=== PATIENT | male | born 1975 | race Caucasian/White ===

== ENCOUNTER 2025-04-03 22:47 | Inpatient (IN) | payer OTHER, MEDICAID ==
[~2025-04-03] VITALS: Ht 170.2 cm; Wt 98.9 kg
[~2025-04-03 22:47] MED LIST: AMLO5TAB88 PO; ASPI-1160 PO; CLOP-31 PO; LIP40 PO; LOSA25TA26 PO
[2025-04-03 23:00] VITALS: BP 151/87; PULSE 78; RESP 18; TEMP 37.1; O2SAT 97
[2025-04-04] MEDS ORDERED: DIPHENHYDRAMINE 50MG/ML VIAL IV PRN
[2025-04-04] MEDS ORDERED: MAGNESIUM/ALUMINUM HYDROXIDE/SIMETHICONE 30ML UDC PO PRN
[2025-04-04] MEDS ORDERED: ONDANSETRON HCL 4MG/2ML INJ IV PRN
[2025-04-04] MEDS ORDERED: CLONIDINE 0.1MG TABLET PO PRN
[2025-04-04 01:00] VITALS: BP 151/87; PULSE 78; RESP 18; TEMP 37.1408
[2025-04-04 04:00] VITALS: BP 144/86; PULSE 88; RESP 18; TEMP 36.7; O2SAT 98
[2025-04-04 08:00] VITALS: BP 149/93; PULSE 81; RESP 19; TEMP 36.9; O2SAT 97
[2025-04-04 08:05] LABS: BASOPHILS % 0.3 % (0.0-2.0); EOSINOPHILS % 1.6 % (0.0-5.0); HEMATOCRIT. 47.0 % (42.0-52.0); HEMOGLOBIN. 16.1 g/dL (14.0-18.0); LYMPHOCYTES % 19.8 % (20.0-50.0); MEAN PLATELET VOLUME 7.8 fl (7.4-10.4); MONOCYTES % 8.8 % (2.0-8.0); NEUTROPHILS % 69.5 % (40.0-76.0); PLATELET 356 x1000/uL (130-400); RED BLOOD CELL COUNT 5.44 mill/uL (4.7-6.1); RED CELL DISTRIBUTION WIDTH 13.6 % (11.6-14.6)
[2025-04-04 08:15] LABS: CREATININE 0.9 mg/dL (0.6-1.3)
[2025-04-04 08:17] LABS: ASPARTATE AMINOTRANSFERASE 47 IU/L (<34); UREA NITROGEN BLOOD 15 mg/dL (9-23)
[2025-04-04 08:19] LABS: BILIRUBIN TOTAL 1.0 mg/dL (0.1-1.0); PROTEIN TOTAL 8.1 g/dL (6.0-8.3)
[2025-04-04] MEDS: ASPIRIN 81MG TABLET PO SCH (08:42)
[2025-04-04] MEDS: CLOPIDOGREL 75MG TABLET PO SCH (08:43)
[2025-04-04] MEDS: LOSARTAN 25 MG TABLET PO SCH (08:44)
[2025-04-04] MEDS: AMLODIPINE 5MG TABLET PO SCH (08:44)
[2025-04-04 20:00] VITALS: BP 123/81; PULSE 88; RESP 20; TEMP 36.9; O2SAT 96
[2025-04-04] MEDS: ATORVASTATIN CALCIUM 40MG TABLET PO SCH (20:20)
[2025-04-05 08:00] VITALS: BP_SYST 127; BP_SYST 138; BP_DIAS 85; BP_DIAS 89; PULSE 85; PULSE 88; RESP 19; RESP 20; TEMP 35.6; TEMP 37.1; O2SAT 95; O2SAT 97
[2025-04-05 08:12] LABS: BASOPHILS % 0.4 % (0.0-2.0); EOSINOPHILS % 1.6 % (0.0-5.0); HEMATOCRIT. 44.5 % (42.0-52.0); HEMOGLOBIN. 14.7 g/dL (14.0-18.0); LYMPHOCYTES % 18.4 % (20.0-50.0); MEAN PLATELET VOLUME 7.7 fl (7.4-10.4); MONOCYTES % 9.8 % (2.0-8.0); NEUTROPHILS % 69.8 % (40.0-76.0); PLATELET 405 x1000/uL (130-400); RED BLOOD CELL COUNT 5.10 mill/uL (4.7-6.1); RED CELL DISTRIBUTION WIDTH 13.4 % (11.6-14.6)
[2025-04-05 08:28] LABS: CREATININE 1.0 mg/dL (0.6-1.3); UREA NITROGEN BLOOD 21 mg/dL (9-23)
[2025-04-05 08:29] LABS: PROTEIN TOTAL 8.2 g/dL (6.0-8.3)
[2025-04-05 08:30] LABS: ASPARTATE AMINOTRANSFERASE 35 IU/L (<34); BILIRUBIN TOTAL 1.0 mg/dL (0.1-1.0)
[2025-04-05 08:32] LABS: FOLIC ACID (FOLATE) SERUM 10.55 ng/mL (>5.38)
[2025-04-05 08:34] LABS: VITAMIN B12 SERUM 442 pg/mL (211-911)
[2025-04-05] MEDS: FERROUS SULFATE 325MG TABLET PO SCH (17:00)
[2025-04-05 20:00] VITALS: BP 143/88; PULSE 79; RESP 18; TEMP 36.6; O2SAT 95
[2025-04-06 08:00] VITALS: PULSE 85; RESP 20; TEMP 36.6; O2SAT 96
[2025-04-06] MEDS: ASCORBIC ACID 500 MG TABLET PO SCH (09:35)
[2025-04-06] MEDS: CYANOCOBALAMIN 1000MCG/ML VIAL IM SCH (09:35)
[2025-04-06] MEDS: LACTULOSE 20G/30ML UDC PO SCH (13:49)
[2025-04-06] MEDS ORDERED: ERGOCALCIFEROL 50000UNITS CAPSULE PO SCH ×2 (15:00→15:30)
[2025-04-06] MEDS: ACETAMINOPHEN 325MG TABLET PO PRN (15:41)
[2025-04-06] MEDS: ERGOCALCIFEROL 50000UNITS CAPSULE PO SCH (15:43)
[2025-04-06 20:00] VITALS: BP 130/78; PULSE 75; RESP 20; TEMP 36.2; O2SAT 96
[2025-04-07] VITALS: BP 122/83; PULSE 75; RESP 19; TEMP 36.4; O2SAT 100
[2025-04-07 08:00] VITALS: BP 132/86; PULSE 99; RESP 20; TEMP 36.7; O2SAT 97
[2025-04-07 20:00] VITALS: BP 128/85; PULSE 78; RESP 20; TEMP 36.5; O2SAT 95
[2025-04-08 08:00] VITALS: BP 126/81; PULSE 74; RESP 18; TEMP 35.9; O2SAT 99
[2025-04-08 20:00] VITALS: BP 136/89; PULSE 78; RESP 19; TEMP 36.6; O2SAT 100
[2025-04-09 08:00] LABS: ASPARTATE AMINOTRANSFERASE 25 IU/L (<34); BILIRUBIN DIRECT 0.2 mg/dL (<=3.0); BILIRUBIN TOTAL 0.7 mg/dL (0.1-1.0); PROTEIN TOTAL 7.1 g/dL (6.0-8.3)
[2025-04-09 08:45] VITALS: BP 124/87; PULSE 85; RESP 18; TEMP 36.1; O2SAT 95
[2025-04-09 20:00] VITALS: BP 133/77; PULSE 79; RESP 20; TEMP 36.4; O2SAT 97
[2025-04-10 08:00] VITALS: BP 130/80; PULSE 70; RESP 18; TEMP 36.4; O2SAT 97
[2025-04-10 08:23] LABS: BASOPHILS % 0.6 % (0.0-2.0); EOSINOPHILS % 2.7 % (0.0-5.0); HEMATOCRIT. 40.2 % (42.0-52.0); HEMOGLOBIN. 13.7 g/dL (14.0-18.0); LYMPHOCYTES % 21.3 % (20.0-50.0); MEAN PLATELET VOLUME 7.3 fl (7.4-10.4); MONOCYTES % 7.3 % (2.0-8.0); NEUTROPHILS % 68.1 % (40.0-76.0); PLATELET 406 x1000/uL (130-400); RED BLOOD CELL COUNT 4.63 mill/uL (4.7-6.1); RED CELL DISTRIBUTION WIDTH 13.0 % (11.6-14.6)
[2025-04-10 08:24] LABS: CREATININE 1.0 mg/dL (0.6-1.3); UREA NITROGEN BLOOD 17 mg/dL (9-23)
[2025-04-10 08:26] LABS: ASPARTATE AMINOTRANSFERASE 18 IU/L (<34); BILIRUBIN DIRECT 0.2 mg/dL (<=3.0); BILIRUBIN TOTAL 0.6 mg/dL (0.1-1.0)
[2025-04-10 08:27] LABS: PROTEIN TOTAL 7.6 g/dL (6.0-8.3)
[2025-04-10 20:00] VITALS: BP 138/84; PULSE 74; RESP 18; TEMP 36.3; O2SAT 7
[2025-04-11 08:00] VITALS: BP 140/85; PULSE 75; RESP 18; TEMP 36.3; O2SAT 99
[2025-04-11 08:27] LABS: BASOPHILS % 0.7 % (0.0-2.0); EOSINOPHILS % 2.0 % (0.0-5.0); HEMATOCRIT. 40.5 % (42.0-52.0); HEMOGLOBIN. 13.7 g/dL (14.0-18.0); LYMPHOCYTES % 22.7 % (20.0-50.0); MEAN PLATELET VOLUME 7.0 fl (7.4-10.4); MONOCYTES % 7.3 % (2.0-8.0); NEUTROPHILS % 67.3 % (40.0-76.0); PLATELET 413 x1000/uL (130-400); RED BLOOD CELL COUNT 4.67 mill/uL (4.7-6.1); RED CELL DISTRIBUTION WIDTH 13.2 % (11.6-14.6)
[2025-04-11 08:39] LABS: CREATININE 0.9 mg/dL (0.6-1.3); UREA NITROGEN BLOOD 15 mg/dL (9-23)
[2025-04-11 08:41] LABS: ASPARTATE AMINOTRANSFERASE 22 IU/L (<34); BILIRUBIN DIRECT 0.3 mg/dL (<=3.0)
[2025-04-11 08:42] LABS: BILIRUBIN TOTAL 0.7 mg/dL (0.1-1.0); PROTEIN TOTAL 7.7 g/dL (6.0-8.3)
[2025-04-11 09:17] LABS: HEPATITIS A AB IGM NEGATIVE (Negative)
[2025-04-11 09:18] LABS: HEPATITIS B CORE AB IGM NEGATIVE (Negative); HEPATITIS C AB NON REACTIVE (Neg) (Negative)
[2025-04-11 20:00] VITALS: BP 143/85; PULSE 68; RESP 20; TEMP 36.6; O2SAT 98
[2025-04-12 08:00] VITALS: BP 124/76; PULSE 68; RESP 18; TEMP 36.3; O2SAT 97
[2025-04-12] MEDS: CYANOCOBALAMIN 1000MCG/ML VIAL IM SCH (17:20)
[2025-04-12 20:00] VITALS: BP 126/80; PULSE 69; RESP 18; TEMP 36.1; O2SAT 97
[2025-04-13 08:00] VITALS: BP 118/67; PULSE 63; RESP 18; TEMP 36.1; O2SAT 99
[2025-04-13 20:00] VITALS: BP 139/84; PULSE 68; RESP 18; TEMP 36.5; O2SAT 95
[2025-04-14 08:00] VITALS: BP 133/91; PULSE 67; RESP 18; TEMP 36.6; O2SAT 97
[2025-04-14 20:00] VITALS: BP 127/74; PULSE 70; RESP 18; TEMP 36.5; O2SAT 96
[2025-04-15 08:00] VITALS: BP 108/64; PULSE 74; RESP 18; TEMP 36.4; O2SAT 98
[2025-04-15 20:00] VITALS: BP 132/73; PULSE 79; RESP 18; TEMP 36.5; O2SAT 100
[2025-04-16 08:00] VITALS: BP 119/69; PULSE 76; RESP 16; TEMP 36.4; O2SAT 99
[2025-04-16 20:00] VITALS: BP 119/81; PULSE 71; RESP 18; TEMP 36.5; O2SAT 98
[2025-04-17 08:00] VITALS: BP 110/62; PULSE 72; RESP 18; TEMP 36.4; O2SAT 98
[2025-04-17 10:38] LABS: CREATININE 0.9 mg/dL (0.6-1.3); UREA NITROGEN BLOOD 15 mg/dL (9-23)
[2025-04-17 10:39] LABS: PROTEIN TOTAL 7.1 g/dL (6.0-8.3)
[2025-04-17 10:40] LABS: ASPARTATE AMINOTRANSFERASE 16 IU/L (<34); BILIRUBIN TOTAL 0.6 mg/dL (0.1-1.0)
[2025-04-17 16:52] LABS: BASOPHILS % 0.7 % (0.0-2.0); EOSINOPHILS % 3.2 % (0.0-5.0); HEMATOCRIT. 41.7 % (42.0-52.0); HEMOGLOBIN. 14.3 g/dL (14.0-18.0); LYMPHOCYTES % 25.2 % (20.0-50.0); MEAN PLATELET VOLUME 7.4 fl (7.4-10.4); MONOCYTES % 5.6 % (2.0-8.0); NEUTROPHILS % 65.3 % (40.0-76.0); PLATELET 386 x1000/uL (130-400); RED BLOOD CELL COUNT 4.83 mill/uL (4.7-6.1); RED CELL DISTRIBUTION WIDTH 12.9 % (11.6-14.6)
[2025-04-17 20:00] VITALS: BP 141/82; PULSE 63; RESP 18; TEMP 36.4; O2SAT 98
[2025-04-18 08:00] VITALS: BP 139/58; PULSE 62; RESP 20; TEMP 36.2; O2SAT 97
[2025-04-18 20:00] VITALS: BP 138/87; PULSE 76; RESP 19; TEMP 36.4; O2SAT 97
[2025-04-19 08:00] VITALS: BP 120/86; PULSE 80; RESP 18; TEMP 36.7; O2SAT 96
[2025-04-19 20:00] VITALS: BP 125/75; PULSE 74; RESP 18; TEMP 36.6; O2SAT 96
[2025-04-20 08:00] VITALS: BP 106/70; PULSE 71; RESP 19; TEMP 35.7; O2SAT 98
[2025-04-20 20:00] VITALS: BP 133/76; PULSE 62; RESP 19; TEMP 36.2; O2SAT 97
[2025-04-21 20:00] VITALS: BP 108/69; PULSE 64; RESP 18; TEMP 36.3; O2SAT 97
[2025-04-22 08:00] VITALS: BP 142/91; PULSE 65; RESP 20; TEMP 36.5; O2SAT 95
[2025-04-22 20:00] VITALS: BP 117/91; PULSE 62; RESP 20; TEMP 36.2; O2SAT 96
[2025-04-23 08:00] VITALS: BP 104/60; PULSE 62; RESP 20; TEMP 36.2; O2SAT 96
[2025-04-23] MEDS: AMLODIPINE 5MG TABLET PO SCH (11:00)
[2025-04-23] MEDS: LOSARTAN 50 MG TABLET PO SCH (11:00)
[2025-04-23] MEDS ORDERED: ASPI-1160 PO (16:54)
[2025-04-23] MEDS ORDERED: LIP40 PO (16:54)
[2025-04-23] MEDS ORDERED: AMLO5TAB88 PO (16:54)
[2025-04-23] MEDS ORDERED: LOSA50TA41 PO (16:54)
[2025-04-23 20:00] VITALS: BP 110/70; PULSE 64; RESP 20; TEMP 36.2; O2SAT 97
[2025-04-24 08:00] VITALS: BP 132/87; PULSE 78; RESP 18; TEMP 36.9; O2SAT 99
[2025-04-24 12:13] VITALS: BP 124/83; PULSE 70; RESP 17; TEMP 97.9
== END 2025-04-24 14:41 | disposition home or self-care (01) | DRG 58 ==
PROVIDERS: ADMIT Physical Medicine & Rehabilitation Spinal Cord Injury Medicine; ATTEND Internal Medicine
DX: G81.94 Hemiplegia, unspecified affecting left nondominant side (principal); I65.02 Occlusion and stenosis of left vertebral artery; D50.9 Iron deficiency anemia, unspecified; E11.9 Type 2 diabetes mellitus without complications; D72.829 Elevated white blood cell count, unspecified; E55.9 Vitamin D deficiency, unspecified; Z79.02 Long term (current) use of antithrombotics/antiplatelets; R53.2 Functional quadriplegia; E66.811 Obesity, class 1; I10 Essential (primary) hypertension; E78.00 Pure hypercholesterolemia, unspecified; E78.1 Pure hyperglyceridemia; R53.1 Weakness; R53.81 Other malaise; R74.01 Elevation of levels of liver transaminase levels; Z68.34 Body mass index [BMI] 34.0-34.9, adult; Z79.899 Other long term (current) drug therapy; Z91.148 Patient's other noncompliance with medication regimen for other reason; Z79.82 Long term (current) use of aspirin; R47.81 Slurred speech
CPT/HCPCS: 36415; 76700; 80048; 80053; 80076; 82140; 82248; 82306; 82607; 82728; 82746; 83036; 83540; 83550; 84075; 84134; 84145; 84443; 85025; 86705; 86709; 87340; 92523; 92610; 97110; 97112; 97116; 97140; 97162; 97166; 97530; 97535; A4606; J3420